=== PATIENT | female | born 1950 | race African-American/Black ===

== ENCOUNTER 2017-09-08 13:06 | Emergency (ER) | payer MEDICARE ==
[~2017-09-08] VITALS: Ht 160 cm; Wt 118.0 kg
[~2017-09-08 13:06] MED LIST: BP MED; CITA10TA4 PO; LORTA5 PO; MEDR4PAK3 PO; ZOLP10TA3 PO
[2017-09-08 13:15] VITALS: BP 186/80; PULSE 86; RESP 18; TEMP 98.3; O2SAT 99
[2017-09-08] MEDS ORDERED: SODIUM CHLOR 0.9% 1000 ML INJ 1,000 ML IV SCH (13:17)
[2017-09-08] MEDS ORDERED: SODIUM CHLORIDE 0.9% FLUSH 10 ML FLUSH IV FLUSH PRN (13:30)
[2017-09-08] MEDS ORDERED: FAMOTIDINE 20 MG/2 ML VIAL IV PUSH ONE (13:30)
[2017-09-08] MEDS ORDERED: methylPREDNISolone SOD SUCC 125 MG/2 ML VIAL IV PUSH ONE (13:30)
[2017-09-08 13:32] VITALS: O2SAT 99
--- NOTE | 2017-09-08 13:37 | PD ---
HPI Chief Complaint: Allergic/Adverse Reaction Time Seen by Provider: 13:17 Travel History International Travel<30 days: No Contact w/Intl Traveler<30days: No History of Present Illness HPI Patient is a 67-year-old female who presents to emergency room for evaluation of allergic reaction to shrimp. 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 Patient reports that the last time she had shrimp and had allergic reaction, she had increased pruritus her face and "welts to my face." Patient reports that she does not have any symptoms of throat closing or airway issues. Patient reports that usually Benadryl does help prevent allergic reactions from happening when she does have shrimp products. Patient reports that 25 minutes prior to arrival to the emergency room, she shrimp and developed an allergic reaction to it. Patient reports that her face feels itchy and she has developed welts on her face. Patient did take 50 mg of Benadryl prior to arrival to the emergency room. Patient with no chest pain or shortness of breath at this time, patient with no airway compromise. PFSH Past Medical History Depression: Yes Hypertension: Yes Past Surgical History Abdominal Surgery: Yes (GASTRIC BYPASS) Appendectomy: Yes Section: Yes Cholecystectomy: Yes Hysterectomy: Yes Tonsillectomy: Yes Social History Alcohol Use: No Tobacco Use: No Substance Use: No Allergies-Medications (Allergen,Severity, Reaction): Coded Allergies: shrimp (Unverified Allergy, Unknown, 09/08/17) Reported Meds & Prescriptions Reported Meds & Active Scripts Active Pepcid (Famotidine) 20 Mg Tab 20 Mg PO BID 5 Days Epipen 2-Aravind Inj (Epinephrine) 0.3 Mg/0.3 Ml Pfpen 0.3 Mg IM ONCE PRN Diphenhydramine (Diphenhydramine HCl) 25 Mg Tab 50 Mg PO Q6H PRN 5 Days Prednisone 20 Mg Tab 20 Mg PO BID 5 Days Reported Amlodipine (Amlodipine Besylate) 10 Mg Tab 10 Mg PO DAILY Ambien (Zolpidem Tartrate) 10 Mg Tab 10 Mg PO HS PRN Hydrocodone-Acetaminophen 5-325 mg Tab 1 Tab PO Q8HR PRN Citalopram (Citalopram Hydrobromide) 20 Mg Tab 20 Mg PO DAILY Review of Systems General / Constitutional: No: Fever Eyes: No: Visual changes HENT: No: Headaches Cardiovascular: No: Chest Pain or Discomfort Respiratory: No: Shortness of Breath Gastrointestinal: No: Abdominal Pain Genitourinary: No: Dysuria Musculoskeletal: No: Pain Skin: Positive Rash, Positive Itching, Positive Hives Neurologic: No: Weakness Psychiatric: No: Depression Endocrine: No: Polydipsia Hematologic/Lymphatic: No: Easy Bruising Physical Exam Narrative GENERAL: Mild distress SKIN: Focused skin assessment warm/dry. Patient with hives to face HEAD: Atraumatic. Normocephalic. EYES: Pupils equal and round. No scleral icterus. No injection or drainage. ENT: No nasal bleeding or discharge. Mucous membranes pink and moist. Uvula midline with no swelling, Posterior pharynx open and patent, patient with no airway compromise at this time, no drooling, patient talking in full sentences without any difficulty NECK: Trachea midline. No JVD. CARDIOVASCULAR: Regular rate and rhythm. No murmur appreciated. RESPIRATORY: No accessory muscle use. Clear to auscultation. Breath sounds equal bilaterally. GASTROINTESTINAL: Abdomen soft, non-tender, nondistended. Hepatic and splenic margins not palpable. MUSCULOSKELETAL: No obvious deformities. No clubbing. No cyanosis. No edema. NEUROLOGICAL: Awake and alert. No obvious cranial nerve deficits. Motor grossly within normal limits. Normal speech. PSYCHIATRIC: Appropriate mood and affect; insight and judgment normal. Data Data Last Documented VS Vital Signs Date Time Temp Pulse Resp B/P (MAP) Pulse Ox O2 Delivery O2 Flow Rate FiO2 09/08/17 13:45 65 18 156/76 (102) 100 09/08/17 13:32 Room Air 09/08/17 13:15 98.3 Orders Orders Ecg Monitoring (09/08/17 13:17) Iv Access Insert/Monitor (09/08/17 13:17) Oximetry (09/08/17 13:17) Methylprednisolone So Succ Inj (Solumedr (09/08/17 13:30) Famotidine Inj (Pepcid Inj) (09/08/17 13:30) Sodium Chlor 0.9% 1000 Ml Inj (Ns 1000 M (09/08/17 13:17) Sodium Chloride 0.9% Flush (Ns Flush) (09/08/17 13:30) MDM Medical Decision Making Medical Screen Exam Complete: Yes Emergency Medical Condition: Yes Medical Record Reviewed: Yes Interpretation(s) Vital Signs Date Time Temp Pulse Resp B/P (MAP) Pulse Ox O2 Delivery O2 Flow Rate FiO2 09/08/17 13:45 65 18 156/76 (102) 100 09/08/17 13:32 99 Room Air 09/08/17 13:15 98.3 86 18 186/80 (115) 99 Differential Diagnosis allergic reaction to shrimp Narrative Course During the course of the patients emergency department visit, the patients history, examination, and differential diagnosis were reviewed with the patient. The patient was placed on a clerk typist with oximetry and frequent blood pressure monitoring. The patient had 20 gauge IV access obtained and blood work sent for analysis. The patient was initially provided IV steroids, IV pepcid. She has already taken 50mg of benadryl Patient reevaluated, patient feeling much better at this time. Patient reports near resolution of symptoms. Patient with no airway compromise. Plan to discharge patient home with prescription for prednisone, Benadryl and Pepcid as well as EpiPen. I did review instructions on how to use EpiPen with patient, understands need to go to the nearest emergency room if she misses EpiPen to herself. Diagnosis Primary Impression: Allergic reaction Qualified Codes: T78.40XA - Allergy, unspecified, initial encounter Patient Instructions: General Instructions Additional Instructions: Please follow up with your primary care doctor in 2-3 days Return to the ER if symptoms worsen or progress Return to the ER as needed Please stop eating shrimp!!! If you administer EpiPen to yourself, please go to the nearest emergency room for evaluation and monitoring Med/Other Pt SpecificInfo: Prescription(s) given Scripts Famotidine (Pepcid) 20 Mg Tab 20 MG PO BID for 5 Days, #10 TAB 0 Refills Prov: Palma Ladd DO 09/08/17 Epinephrine Inj (Epipen 2-Aravind Inj) 0.3 Mg/0.3 Ml Pfpen 0.3 MG IM ONCE Y for ALLERGIC REACTION, #1 PACK 0 Refills Prov: Palma Ladd DO 09/08/17 Diphenhydramine (Diphenhydramine) 25 Mg Tab 50 MG PO Q6H Y for ALLERGIES for 5 Days, #40 TAB 0 Refills Prov: Palma Ladd DO 09/08/17 Prednisone (Prednisone) 20 Mg Tab 20 MG PO BID for 5 Days, #10 TAB 0 Refills Prov: Palma Ladd DO 09/08/17 Disposition: 01 DISCHARGE HOME Condition: Stable Palma Ladd DO Sep 08, 2017 13:37
[2017-09-08] MEDS ORDERED: DIPH25TA2 PO (13:42)
[2017-09-08] MEDS ORDERED: PRED20 PO (13:42)
[2017-09-08] MEDS ORDERED: FAMO1TAB37 PO (13:42)
[2017-09-08] MEDS ORDERED: EPIP0.3I IM (13:42)
[2017-09-08 13:45] VITALS: BP 156/76; PULSE 65; RESP 18; O2SAT 100
[2017-09-08] MEDS ORDERED: HYDR-3516 PO (14:14)
[2017-09-08] MEDS ORDERED: CITA20TA4 PO (14:14)
[2017-09-08] MEDS ORDERED: AMBI10TA PO (14:14)
[2017-09-08] MEDS ORDERED: AMLO10TA2 PO (14:14)
== END 2017-09-08 14:58 | disposition home or self-care (01) ==
LOC: PHED 13:06
DX: T78.40XA Allergy, unspecified, initial encounter (principal); I10 Essential (primary) hypertension; F32.9 Major depressive disorder, single episode, unspecified
CPT/HCPCS: 96361; 96374; 96375; 99284; J2930; J7030